=== PATIENT | male | born 1985 | race Caucasian/White ===

== ENCOUNTER 2018-09-22 15:55 | Emergency (ER) | END 2018-09-22 19:13 | disposition left against medical advice (07) ==

== ENCOUNTER 2019-01-15 09:30 | Emergency (ER) | payer MEDICAID ==
[~2019-01-15] VITALS: Wt 75.6 kg
[2019-01-15] MEDS ORDERED: SOD CHLORIDE 0.9% 1,000 ML IV STA (11:18)
[2019-01-15] MEDS ORDERED: ONDANSETRON 4 MG INJ IV STA (11:18)
--- NOTE | 2019-01-15 11:21 | ERD ---
ER Documentation Chief Complaint Chief Complaint ABD PAIN, N/V X2 DAYS HPI This is a 33-year-old male presents to the ED with complaints of nausea, vomiting, diarrhea since last night. Patient states his entire family has had similar symptoms this past week. He reports over 6 episodes of nonbilious, nonbloody emesis, and 15 episodes of loose watery stools since yesterday. He also reports some associated abdominal cramping. He denies any hematochezia, hematemesis, fevers, chills, dysuria, frequency or any other urinary symptoms. States he has not been able to tolerate drinking or eating at home and therefore came here for further evaluation. Otherwise healthy with no other complaints. No recent antibiotic use. No recent travel. He does admit to smoking marijuana "every other day," no other illicit drug use. ROS All systems reviewed and are negative except as per history of present illness. Medications Home Meds Active Scripts Ondansetron (Ondansetron Odt) 4 Mg Tab.rapdis, 4 MG PO Q6H PRN for NAUSEA AND/OR VOMITING, #10 TAB Prov:MYAH GEORGE PA-C 01/15/19 Allergies Allergies: Coded Allergies: No Known Allergy (Unverified , 01/15/19) Physical Exam Vitals Vital Signs Date Temp Pulse Resp B/P (MAP) Pulse Ox O2 O2 Flow FiO2 Time Delivery Rate 01/15/19 98.7 90 17 113/81 99 09:33 (92) Physical Exam Const: No acute distress Head: Atraumatic Eyes: Normal Conjunctiva ENT: Normal External Ears, Nose and Mouth. Neck: Full range of motion. No meningismus. Resp: Clear to auscultation bilaterally Cardio: Regular rate and rhythm, no murmurs Abd: Soft, non tender, non distended. + Hyperactive bowel sounds. Negative McBurney's point tenderness. Negative Dorman sign. Skin: No petechiae or rashes Back: No midline or flank tenderness Ext: No cyanosis, or edema Neur: Awake and alert Psych: Normal Mood and Affect Result Diagram: 01/15/19 1144 01/15/19 1144 Results 24 hrs Laboratory Tests Test 01/15/19 11:44 White Blood Count 8.8 10^3/ul Red Blood Count 4.68 10^6/ul Hemoglobin 15.1 g/dl Hematocrit 45.0 % Mean Corpuscular Volume 96.2 fl Mean Corpuscular Hemoglobin 32.3 pg Mean Corpuscular Hemoglobin Concent 33.6 g/dl Red Cell Distribution Width 12.0 % Platelet Count 357 10^3/UL Mean Platelet Volume 9.1 fl Immature Granulocytes % 0.500 % Neutrophils % 86.4 % Lymphocytes % 4.3 % Monocytes % 7.9 % Eosinophils % 0.6 % Basophils % 0.3 % Nucleated Red Blood Cells % 0.0 /100WBC Immature Granulocytes # 0.040 10^3/ul Neutrophils # 7.6 10^3/ul Lymphocytes # 0.4 10^3/ul Monocytes # 0.7 10^3/ul Eosinophils # 0.1 10^3/ul Basophils # 0.0 10^3/ul Nucleated Red Blood Cells # 0.0 10^3/ul Sodium Level 142 mmol/L Potassium Level 4.6 mmol/L Chloride Level 104 mmol/L Carbon Dioxide Level 27 mmol/L Anion Gap 11 Blood Urea Nitrogen 9 mg/dl Creatinine 0.85 mg/dl Est Glomerular Filtrat Rate mL/min > 60 mL/min Glucose Level 101 mg/dl Calcium Level 10.0 mg/dl Total Bilirubin 0.4 mg/dl Direct Bilirubin 0.00 mg/dl Indirect Bilirubin 0.4 mg/dl Aspartate Amino Transf (AST/SGOT) 43 IU/L Alanine Aminotransferase (ALT/SGPT) 23 IU/L Alkaline Phosphatase 43 IU/L Total Protein 7.2 g/dl Albumin 4.5 g/dl Globulin 2.70 g/dl Albumin/Globulin Ratio 1.66 Lipase 142 U/L Current Medications Medications Dose Sig/Aysha Start Time Status Last (Trade) Ordered Route PRN Stop Time Admin Dose Reason Admin Sodium 1,000 ml @ Q1H STAT 01/15/19 DC 01/15/19 Chloride 1,000 mls/hr IV 11:18 11:34 01/15/19 12:17 Ondansetron 4 mg ONCE STAT 01/15/19 DC 01/15/19 HCl (Zofran IV 11:18 11:34 Inj) 01/15/19 11:20 Procedures/MDM Lab Results above were reviewed and interpreted by me as below. 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 Family have been sick with same symptoms. He is afebrile here and vitals signs are stable. No signs of acute surgical abdomen on physical exam. He was given IV Zofran and felt much better. IVF were ordered as well but pt deferred. He felt much better status post Zofran, tolerating PO. Workup negative for any significant signs of dehydration or infection. Symptoms are likely viral in origin. Pt was given rx Zofran and told to follow up with PCP next week. I recommend increasing fluids and av BRAT diet at home. Strict return precautions given. Prior to discharge, patients vital signs have been reviewed SPECIALIST FOLLOW UP RECOMMENDED: Zofran Patient has been advised to follow up with primary care in 1-2 days. Departure Diagnosis: Primary Impression: Nausea, vomiting and diarrhea Condition: Stable Patient Instructions: Gastroenteritis, Viral (6Y-Adult) Referrals: [facility] Additional Instructions: Take Zofran as needed for nausea. continue with fluids and hydration at home. Start with BRAT diet and advance as tolerated. Follow up with PCP in 2 days, return to the ED for any new or worsening symptoms. MYAH GEORGE PA-C Jan 15, 2019 11:21
[2019-01-15] MEDS ORDERED: ONDA4TAB14 PO (12:23)
== END 2019-01-15 12:45 | disposition home or self-care (01) ==
LOC: FTE 09:30
DX: R11.2 Nausea with vomiting, unspecified (principal); R19.7 Diarrhea, unspecified
CPT/HCPCS: 36415; 80053; 83690; 85025; 96374; J2405; J7030; Z7502

== ENCOUNTER 2019-04-25 12:00 | Emergency (ER) | payer SELFPAY ==
[~2019-04-25 12:00] MED LIST: ONDA4TAB14 PO
[2019-04-25] MEDS ORDERED: CYCL10TA7 PO (12:39)
[2019-04-25] MEDS ORDERED: IBUP-1542 PO (12:39)
--- NOTE | 2019-04-25 12:40 | ERD ---
ER Documentation Chief Complaint Chief Complaint neck and shoulder pain HPI 33-year-old male presents to the ED reporting neck and shoulder pain x3 weeks. He reports he has been having a lot of stress lately as and he thought his girlfriend was . He also reports sleeping on his neck and shoulder funny 3 weeks ago when the pain first began. He states that the pain starts in his neck and radiates down his right arm and he sometimes experiences numbness and tingling down his right arm. He states the pain is aching 7 out of 10 intensity at worst. He states that nothing makes it better or worse. He has not tried any medication so far to help alleviate his symptoms. He reports good range of motion and strength in his right arm. He denies any previous injury to the neck or right shoulder. ROS All systems reviewed and are negative except as per history of present illness. Medications Home Meds Active Scripts Ibuprofen* (Motrin*) 600 Mg Tab, 600 MG PO Q6H PRN for PAIN AND OR ELEVATED TEMP, #30 TAB Prov:YAA EASTMAN PA-C 04/25/19 Cyclobenzaprine Hcl* (Cyclobenzaprine Hcl*) 10 Mg Tablet, 10 MG PO TID, #15 TAB Prov:YAA EASTMAN PA-C 04/25/19 Ondansetron (Ondansetron Odt) 4 Mg Tab.rapdis, 4 MG PO Q6H PRN for NAUSEA AND/OR VOMITING, #10 TAB Prov:MYAH GEORGE PA-C 01/15/19 Allergies Allergies: Coded Allergies: No Known Allergy (Unverified , 01/15/19) PMhx/Soc Medical and Surgical Hx: pt denies Medical Hx Hx Alcohol Use: Yes Hx Substance Use: No Hx Tobacco Use: No FmHx Family History: No diabetes Physical Exam Physical Exam Const: No acute distress Head: Atraumatic Eyes: Normal Conjunctiva ENT: Normal External Ears, Nose and Mouth. Neck: Full range of motion. Resp: Clear to auscultation bilaterally Cardio: Regular rate and rhythm Abd: Soft, non tender, non distended. Skin: No petechiae or rashes Back: Tenderness along the cervical spine Ext: Right Shoulder: Good pulses 2+, good range of motion and strength 5 out of 5. Tenderness to the muscles around the scaphoid. Good environmental programs specialist strength. Neur: Awake and alert Psych: Normal Mood and Affect Procedures/MDM ED COURSE: The patient was stable throughout ED course. I kept the patient informed of laboratory and diagnostic imaging results throughout the ED course. MEDICATIONS GIVEN: [None.] MEDICAL DECISION MAKING: Patient is a 33-year-old male complaining of neck pain and right arm pain x3 weeks. He reports he has been very tense and anxious lately with life. He denies any recent injuries. On physical exam the pain was reproduced when I was pressing on his surface muscles around his neck and right shoulder. I believe this is a musculoskeletal strain and spasm that will heal with outpatient treatment. At this time I do not think x-ray imaging is necessary. H&P with other data not c/w emergent process (eg. compartment syndrome, nec fasc). No signs of ischemia, neurovascular compromise, compartment syndrome, or septic joint, avascular necrosis, or osteomyelitis. Vital signs were reviewed. Patient is afebrile. Patient was not hypoxic. Patient was hemodynamically stable. PRESCRIPTION: Motrin and Flexeril DISCHARGE: At this time, patient is stable for discharge and outpatient management. I have instructed the patient to follow-up with his/her primary care physician in 1-2 days. I have discussed with the patient the possibility of needing to see a specialist for further workup and imaging studies if symptoms persist. I have instructed the patient to promptly return to the ER for any new or worsening symptoms including increased pain, fever, nausea, vomiting, weakness or LOC. The patient and/or family expressed understanding of and agreement with this plan. All questions were answered. Home care instructions were provided. Disclaimer: Inadvertent spelling and grammatical errors are likely due to EHR/dictation software use and do not reflect on the overall quality of patient care. Also, please note that the electronic time recorded on this note does not necessarily reflect the actual time of the patient encounter. Departure Diagnosis: Primary Impression: Neck pain Additional Impression: Shoulder pain Chronicity: acute Laterality: right Qualified Codes: M25.511 - Pain in right shoulder Condition: Fair Patient Instructions: Neck Pain, No Trauma, Shoulder Pain (Uncertain Cause) Referrals: [facility] YOU HAVE RECEIVED A MEDICAL SCREENING EXAM AND THE RESULTS INDICATE THAT YOU DO NOT HAVE A CONDITION THAT REQUIRES URGENT TREATMENT IN THE EMERGENCY DEPARTMENT. FURTHER EVALUATION AND TREATMENT OF YOUR CONDITION CAN WAIT UNTIL YOU ARE SEEN IN YOUR DOCTORS OFFICE WITHIN THE NEXT 1-2 DAYS. IT IS YOUR RESPONSIBILITY TO MAKE AN APPOINTMENT FOR FOLOW-UP CARE. IF YOU HAVE A PRIMARY DOCTOR --you should call your primary doctor and schedule an appointment IF YOU DO NOT HAVE A PRIMARY DOCTOR YOU CAN CALL OUR PHYSICIAN REFERRAL HOTLINE AT IF YOU CAN NOT AFFORD TO SEE A PHYSICIAN YOU CAN CHOSE FROM THE FOLLOWING [facility] [address] [facility] [address] [facility] [address] [facility] [address] [facility] [address] [facility]. [facility] [address] [facility]. [facility] YOU HAVE RECEIVED A MEDICAL SCREENING EXAM AND THE RESULTS INDICATE THAT YOU DO NOT HAVE A CONDITION THAT REQUIRES URGENT TREATMENT IN THE EMERGENCY DEPARTMENT. FURTHER EVALUATION AND TREATMENT OF YOUR CONDITION CAN WAIT UNTIL YOU ARE SEEN IN YOUR DOCTORS OFFICE WITHIN THE NEXT 1-2 DAYS. IT IS YOUR RESPONSIBILITY TO MAKE AN APPOINTMENT FOR FOLOW-UP CARE. IF YOU HAVE A PRIMARY DOCTOR --you should call your primary doctor and schedule and appointment IF YOU DO NOT HAVE A PRIMARY DOCTOR YOU CAN CALL OUR PHYSICIAN REFERRAL HOTLINE AT . IF YOU CAN NOT AFFORD TO SEE A PHYSICIAN YOU CAN CHOSE FROM THE FOLLOWING [facility]: [facility] [address] [place] [address] [facility] [address] [place] [address] [facility] [address] [place] [address] Additional Instructions: Call your primary care doctor TOMORROW for an appointment during the next 1-2 days.See the doctor sooner or return here if your condition worsens before your appointment time. YAA EASTMAN PA-C Apr 25, 2019 12:40
== END 2019-04-25 13:05 | disposition home or self-care (01) ==
LOC: FTE 12:00
DX: M54.2 Cervicalgia (principal); M25.511 Pain in right shoulder
CPT/HCPCS: 99283

== ENCOUNTER 2019-05-01 11:28 | Emergency (ER) | payer SELFPAY ==
[~2019-05-01] VITALS: Ht 180.3 cm; Wt 76.2 kg
[~2019-05-01 11:28] MED LIST changes: +CYCL10TA7 PO; +IBUP-1542 PO
[2019-05-01 11:45] VITALS: BP 144/95; PULSE 96; RESP 18; Ht 180.3 cm; Wt 76.2 kg
[2019-05-01] MEDS ORDERED: ACETAMINOPHEN 500 MG TAB PO STA (12:30)
[2019-05-01] MEDS ORDERED: ONDANSETRON (ODT) 4 MG TAB ODT STA (12:30)
[2019-05-01] MEDS ORDERED: ONDA4TAB14 PO (13:49)
--- NOTE | 2019-05-01 13:58 | ERD ---
ER Documentation Chief Complaint Chief Complaint right shoulder pain, hot flashes, diarrhea and nausea x 1 week HPI 33-year-old male presenting with right shoulder pain and diarrhea and nausea. Patient was seen here 6 days ago. He was discharged with medication for his shoulder pain however he did not fill the prescription or take the medications. He has not had any fevers and has generalized abdominal pain. His vomiting and diarrhea started 2 days ago and he feels he has food poisoning. Denies any other medical problems. NKDA. Surgical denies. Social history denies ROS All systems reviewed and are negative except as per history of present illness. Medications Home Meds Active Scripts Ondansetron (Ondansetron Odt) 4 Mg Tab.rapdis, 4 MG PO Q6H PRN for NAUSEA AND/OR VOMITING, #10 TAB Prov:HUNTER ALEAMN PA-C 05/01/19 Ibuprofen* (Motrin*) 600 Mg Tab, 600 MG PO Q6H PRN for PAIN AND OR ELEVATED TEMP, #30 TAB Prov:YAA EASTMAN PA-C 04/25/19 Cyclobenzaprine Hcl* (Cyclobenzaprine Hcl*) 10 Mg Tablet, 10 MG PO TID, #15 TAB Prov:YAA EASTMAN PA-C 04/25/19 Ondansetron (Ondansetron Odt) 4 Mg Tab.rapdis, 4 MG PO Q6H PRN for NAUSEA AND/OR VOMITING, #10 TAB Prov:MYAH GEORGE PA-C 01/15/19 Allergies Allergies: Coded Allergies: No Known Allergy (Unverified , 01/15/19) PMhx/Soc Hx Alcohol Use: Yes Hx Substance Use: Yes (MARIJUANA) Hx Tobacco Use: No Smoking Status: Never smoker FmHx Family History: No diabetes, No coronary disease, No other Physical Exam Vitals Vital Signs Date Temp Pulse Resp B/P (MAP) Pulse Ox O2 O2 Flow FiO2 Time Delivery Rate 05/01/19 97.9 96 18 144/95 99 11:45 (111) Physical Exam GENERAL: The patient is well-appearing, well-nourished, in no acute distress NECK: Mild tenderness palpation along paraspinous muscles of the right cervical neck. No midline tenderness. CHEST: Clear to auscultation bilaterally. There are no rales, wheezes or rhonchi. HEART: Regular rate and rhythm. No murmurs, clicks, rubs or gallops. ABDOMEN:Soft, nontender and nondistended. Good bowel sounds. No rebound or guarding. No gross peritonitis. No gross organomegaly or masses. No Dorman sign or McBurney point tenderness. BACK: No midline or flank tenderness. EXTREMITIES: Equal pulses bilaterally. There is no peripheral clubbing, cyanosis or edema. No focal swelling or erythema. Full range of motion. Grossly neurovascularly intact. NEUROLOGIC: Alert and oriented. Cranial nerves II through XII intact. Motor strength in all 4 extremities with 5 out of 5 strength. Sensation grossly intact. Normal speech and gait. SKIN: There is no apparent rash or petechiae. The skin is warm and dry. Results 24 hrs Current Medications Medications Dose Sig/Aysha Start Time Status Last (Trade) Ordered Route PRN Stop Time Admin Dose Reason Admin Ondansetron 4 mg ONCE STAT 05/01/19 DC 05/01/19 HCl (Zofran ODT 12:30 12:37 Odt) 05/01/19 12:32 1,000 mg ONCE STAT 05/01/19 DC 05/01/19 Acetaminophen PO 12:30 12:37 (Tylenol 05/01/19 12:32 Tab) Procedures/MDM DIAGNOSTIC IMAGING REPORT Patient: STEVEN SAMANIEGO : 1985 Age: 33 Sex: M MR #: [id number] DOS: 05/01/19 1230 Ordering MD: AMANDA ALEMAN PA-C Location: [facility] Room/Bed: PROCEDURE: XR Cervical Spine. CLINICAL INDICATION: neck pain TECHNIQUE: AP, lateral and odontoid views of the cervical spine were performed. The images were reviewed on a PACS workstation. COMPARISON: None. FINDINGS: No fracture detected. Straightening and reversal of the normal lordosis. 3 ml of anterolisthesis at C7-T1. There is moderate disc space narrowing most pronounced at C3-C4, C4-C5, and C5-C6, and mild to moderate multilevel facet arthropathy, most pronounced at the C5-T1, left greater than right. No convincing prevertebral soft tissue swelling. No foreign body. IMPRESSION: No acute appearing fracture detected. Moderate spondylotic changes, greater than expected for age. Mild to moderate dextroscoliosis and reversal of the normal lordosis. Consider CT for further evaluation. MDM: 33-year-old male presenting with right cervical neck strain. I have low suspicion for acute fracture dislocation. I believe patient's symptoms are associated muscular skeletal strain. Patient will be discharged with recommendations of filling his previous prescribed medication. Patient's abdominal exam is non-concerning. Patient likely has got viral gastroenteritis is discharged with supportive medications. Patient is told symptoms change or worsen to return immediately to the ER. All questions answered at discharge Departure Diagnosis: Primary Impression: Neck pain Condition: Stable Patient Instructions: Neck Pain, No Trauma Referrals: [facility] YOU HAVE RECEIVED A MEDICAL SCREENING EXAM AND THE RESULTS INDICATE THAT YOU DO NOT HAVE A CONDITION THAT REQUIRES URGENT TREATMENT IN THE EMERGENCY DEPARTMENT. FURTHER EVALUATION AND TREATMENT OF YOUR CONDITION CAN WAIT UNTIL YOU ARE SEEN IN YOUR DOCTORS OFFICE WITHIN THE NEXT 1-2 DAYS. IT IS YOUR RESPONSIBILITY TO MAKE AN APPOINTMENT FOR FOLOW-UP CARE. IF YOU HAVE A PRIMARY DOCTOR --you should call your primary doctor and schedule an appointment IF YOU DO NOT HAVE A PRIMARY DOCTOR YOU CAN CALL OUR PHYSICIAN REFERRAL HOTLINE AT IF YOU CAN NOT AFFORD TO SEE A PHYSICIAN YOU CAN CHOSE FROM THE FOLLOWING [facility] [address] [facility]. [facility] [address] [facility]. [facility] [address] [facility] [address] [facility] [facility] [address] [facility]. [facility]. [address] Additional Instructions: FOLLOW UP WITH YOUR PRIMARY CARE PHYSICIAN TOMORROW.Return to this facility if you are not improving as expected. HUNTER ALEMAN PA-C May 01, 2019 13:58
== END 2019-05-01 13:56 | disposition home or self-care (01) ==
LOC: FTE 11:28
DX: M54.2 Cervicalgia (principal); R11.0 Nausea
CPT/HCPCS: 72040